=== PATIENT | male | born 1970 | race Caucasian/White ===

== ENCOUNTER → 2019-01-21 | Outpatient (CLI) | payer OTHER ==
--- NOTE | 2019-01-22 05:16 | CONS ---
CONSULTATION DATE OF SERVICE: 01/21/2019 This 48-year-old gentleman has been evaluated in sleep center for possible obstructive sleep apnea-hypopnea syndrome. HISTORY OF PRESENT ILLNESS/SLEEP-WAKE EVALUATION: Patient usual sleep schedule on working days from around 10 to 11 p.m. until 6:45 a.m. and on weekends from around 11 to 12 p.m. until 10 a.m. He does have problem with falling asleep, has TV set in bedroom, usually sleeps on the side position. According to his , he snores and has episodes of stopped breathing during the sleep. The patient wakes up from sleep about 4 times with about one episode of nocturia. In the morning he wakes up tired, has episodes of irritability, usually does not take naps. [place] Sleepiness Scale is 1. The patient described that he is always seeing dreams and he may start to see dreams right after closing his eyes while he is falling asleep. He also dreams if he is taking a nap during the day. PAST MEDICAL HISTORY: Positive for tinnitus, varicose vein of right leg. PAST SURGICAL HISTORY: Status post surgical treatment of the right leg for a varicose vein. MEDICATIONS: Lorazepam at bedtime basically to help patient to fall asleep. SOCIAL HISTORY: Negative for smoking. Alcohol consumption occasional. FAMILY HISTORY: Stroke, cancer, diabetes. REVIEW OF SYSTEMS: Multiple awakenings from sleep. Swelling of right leg. PHYSICAL EXAMINATION: During physical exam, gentleman without distress. VITAL SIGNS: BP 154/100 on the left arm and 140/85 on the right arm, HR 64, RR 16, height 6 feet 0 inch, weight 255, body mass index 34.5, temperature 97.9, oxygen saturation in room air 99%. HEENT: PERRLA, EOMI. Oropharynx extremely low position of soft palate Mallampati 4. Wide neck 17-1/4 inches in circumference. Possibly slight nasal septum deviation. NECK: Supple, no JVD. Thyroid is not palpable. LUNGS: Clear to percussion and to auscultation. Good air exchange. No wheezing or rhonchi. HEART: S1, S2 regular. No murmurs, gallops, or rubs. ABDOMEN: Soft and nontender. Bowel sounds are present. No organomegaly appreciated. EXTREMITIES: Up to 1+ ankle edema on the right leg. COMPLIANCE TESTER: Awake, alert, and oriented X3. Cranial nerves 2 to 7 intact. There is no fasciculation or atrophy. noted. No focal deficits observed. IMPRESSION: 1. Snoring, witnessed episodes of stopped breathing during sleep, extremely low position of soft palate, wide neck, obstructive sleep apnea-hypopnea syndrome. 2. Hypertension, today in the office. 3. History of tinnitus for 2 years. 4. Difficulties to initiate sleep secondary to tinnitus and possibly insomnia. 5. Status post right lower leg surgery for varicose vein. Mild swelling of the ankle of right leg. PLAN: 1. Polysomnography for evaluation of patient's breathing during sleep. 2. CPAP/BiPAP titration if sleep study confirms obstructive sleep apnea-hypopnea syndrome. 3. Preferable position during sleep on the side. 4. No driving if patient feels any sleepiness. 5. I will see patient for follow up visit to explain results of testing and following plan. Thank you very much for referring this patient for consultation. Sincerely, Bassem Mccallum MD, PhD, FAASM Diplomat of [place] [employer] [employer] [place] [employer] Tester [employer] [facility] [place] MMODL / IJN: [id number] /
== END | disposition home or self-care (01) ==
CPT/HCPCS: 99211

== ENCOUNTER → 2019-06-03 | Outpatient (CLI) | payer OTHER ==
--- NOTE | 2019-06-03 17:24 | PN ---
PROGRESS NOTE DATE OF SERVICE: 06/03/2019 This patient is a 48-year-old gentleman who has been followed in Sleep Center for treatment of obstructive sleep apnea-hypopnea syndrome. Recently the patient had a polysomnogram which showed mild sleep apnea with apnea-hypopnea index 5.5, but because the patient has other medical issues, including hypertension, treatment is indicated, and I ordered for him Auto PAP treatment. Today is his first visit after starting to use his CPAP equipment. With the equipment he feels that he sleeps better, and he feels better during the day. [place] Sleepiness Scale today is 4. Reading from his machine showed usage of equipment /30 days, and days for more than 4 hours, which is 70% of the time. Range of the pressure is from 5 to 15 with average pressure in the range of 7 to 10, with 95th percentile of the pressure 9 cm of water. Leak 95% percentile 11.2 L/minute, which is acceptable. Apnea-hypopnea index reading 1.0, which is perfect. MEDICATIONS: None. PHYSICAL EXAMINATION: GENERAL: A pleasant patient in no distress. VITAL SIGNS: BP 138/75, HR 78, RR 16, weight 253.2, temperature 97.3, oxygen saturation at room air 95%. HEENT: PERRLA, EOMI. Evaluation of oropharynx showed tongue protrudes midline. Low position of soft palate. Mallampati III. Large uvula. NECK: Supple. No JVD. Thyroid is not palpable. LUNGS: Clear to percussion and to auscultation. Good air exchange. No wheezing or rhonchi. HEART: S1, S2 regular. No murmurs, gallops or rubs. ABDOMEN: Soft and nontender. Bowel sounds are present. No organomegaly. EXTREMITIES: No clubbing or cyanosis. MANAGER OPERATIONS RESEARCH: Awake, alert, and oriented X3. Cranial nerves 2 to 7 intact. There is no fasciculation or atrophy. noted. No focal deficits observed. IMPRESSION: 1. Obstructive sleep apnea-hypopnea syndrome. The patient demonstrated great compliance with treatment, benefitting from treatment. 2. History of tinnitus. 3. Obesity; body mass index in the range 34. 4. History of anxiety. PLAN: 1. Patient will continue to use CPAP equipment every night for the whole night. 2. Losing weight. 3. Sleep hygiene with regular time in bed for at least 8 hours. 4. No driving if feeling any sleepiness. 5. I will maintain all necessary prescriptions for CPAP supplies, including mask, tube, filters. Thank you very much for allowing me to participate in the management of your patient. Sincerely, Bassem Mccallum MD, PhD, FAASM Diplomat of [place] [employer] [place] [employer] Special Procedure Tech of [facility] [place] MMODL / MAGNOLIAN: [id number] /
== END ==
LOC: SLEEP 15:30
PROVIDERS: ATTEND Internal Medicine
DX: G47.33 Obstructive sleep apnea (adult) (pediatric) (principal); E66.9 Obesity, unspecified; F41.9 Anxiety disorder, unspecified; H93.19 Tinnitus, unspecified ear; Z99.89 Dependence on other enabling machines and devices; Z68.34 Body mass index [BMI] 34.0-34.9, adult

== ENCOUNTER 2019-09-14 22:35 | Emergency (ER) | payer OTHER ==
[2019-09-14] MEDS ORDERED: SODIUM CHLORIDE 0.9% 1,000 ML IV STA (22:51)
[2019-09-14] MEDS ORDERED: KETOROLAC 30 MG/ML 1 ML VIAL IVP STA (22:51)
[2019-09-14 23:16] LABS: Basophils # (A) 0.1 k/uL (0-0.2); Basophils % (A) 1 %; Eosinophils # (A) 0.2 k/uL (0-0.7); Eosinophils % (A) 1 %; HCT 49.1 % (39.0-53.0); HGB 16.8 gm/dL (13.0-17.5); Lymphocytes # (A) 2.6 k/uL (1.0-4.8); Lymphocytes % (A) 17 %; MCH 30.6 pg (25.0-35.0); MCHC 34.1 g/dL (31.0-37.0); MCV 89.6 fL (80.0-100.0); Mean Platelet Volume 7.3; Monocytes % (A) 7 %; Neutrophils # (A) 11.3 k/uL (1.3-7.7); Neutrophils % (A) 73 %; Platelet Count 286 k/uL (150-450); RBC 5.48 m/uL (4.30-5.90); RDW 12.5 % (11.5-15.5); WBC 15.5 k/uL (3.8-10.6)
[2019-09-14 23:24] LABS: ALT 32 U/L (4-49); AST 26 U/L (17-59); African American GFR (CKD) >90 (>60 ml/min/1.73 sqM); Albumin 4.5 g/dL (3.5-5.0); Alkaline Phosphatase 77 U/L (38-126); Amylase 54 U/L (30-110); Anion Gap 10 mmol/L; Blood Urea Nitrogen 13 mg/dL (9-20); Calcium 9.5 mg/dL (8.4-10.2); Carbon Dioxide 25 mmol/L (22-30); Chloride 102 mmol/L (98-107); Glucose 144 mg/dL (74-99); Non-African American GFR(CKD) 89 (>60 ml/min/1.73 sqM); Potassium 4.1 mmol/L (3.5-5.1); Sodium 137 mmol/L (137-145); Total Protein 7.5 g/dL (6.3-8.2)
--- NOTE | 2019-09-14 23:52 | CT ---
EXAMINATION TYPE: CT abdomen pelvis w con DATE OF EXAM: 09/14/2019 COMPARISON: None HISTORY: lower abd pain CT DLP: 1567.80 mGycm Automated exposure control for dose reduction was used. CONTRAST: Performed with IV Contrast, patient injected with 100 mL of Isovue 300. Multiple axial sections were obtained from the diaphragm to the floor the pelvis with intravenous con trast Isovue 100 mL. Lung bases are clear. There is no pleural effusion. Heart is normal. Liver spleen pancreas gallbladde r appear normal. Stomach appears normal. Bile ducts are not dilated. There is no adrenal mass. Kidneys show satisfactory contrast opacification. There is no hydronephrosi s. Delayed images show normal renal excretion. Ureters are not dilated. There is no retroperitoneal a denopathy. Appendix is posterior and appears normal. Bladder distends smoothly. There is mild prostat ic calcification. There is right side scrotal hernia that contains fat. There is fat stranding around the mid sigmoid colon. There is wall thickening. There are a few sigmoi d diverticula. There is no evidence of free air. There is no ascites. There is no evidence of bowel obstruction. Lum bar vertebra have normal spacing and alignment. Posterior elements are intact. Bony pelvis appears in tact. IMPRESSION: Inflammatory changes in the pelvis related to mild to moderate diverticulitis of the mid sigmoid colo n. No abscess.
[2019-09-15 00:06] LABS: Appearance,Urine Clear (Clear); Bilirubin,Urine Negative (Negative); Blood,Urine Small (Negative); Color,Urine Yellow; Glucose,Urine (UA) Negative (Negative); Ketones,Urine Negative (Negative); Leukocyte Esterase,Urine Negative (Negative); Mucus,Urine Few /hpf; Nitrite,Urine Negative (Negative); Protein,Urine 1+ (Negative); RBC,Urine 4 /hpf (0-5); Squamous Epithelial Cell,Urine 1 /hpf (0-4); Urobilinogen,Urine <2.0 mg/dL (<2.0); WBC,Urine 1 /hpf (0-5)
[2019-09-15] MEDS ORDERED: ACET/COD 300 MG/30 MG STARTER PACK 6 TAB BTL PO STA (00:09)
[2019-09-15] MEDS ORDERED: AMOXIC-POT CLAV 875MG STARTER PACK 2 TAB BTL PO STA (00:09)
--- NOTE | 2019-09-15 00:10 | ED ---
Abdominal Pain HPI - General Chief Complaint: Abdominal Pain Stated Complaint: Abd Pain Time Seen by Provider: 09/14/19 22:40 Source: patient Mode of arrival: ambulatory Limitations: no limitations - History of Present Illness Initial Comments: 48 year-old male patient presents to the emergency department today for evaluation of lower abdominal pain. Patient states he's had the pain since early this morning. States the pain is been worsening throughout the day. Patient states that he has been having small bowel movements and is concerned he may be constipated. Patient denies any hematochezia or melena. Denies fever or chills. Denies any nausea or vomiting. Patient denies ever having pain similar to this in the past. Patient states that he did have a colonoscopy 7 years ago and was told that he had a seed ALLERGY. Patient denies taking any medications or chronic medical conditions. Patient denies any recent rash, shortness breath, chest pain, back pain, numbness, tingling, dizziness, weakness, hematuria, dysuria, urinary urgency, urinary frequency, headache, visual changes, or any other complaints. - Related Data Home Medications Medication Instructions Recorded Confirmed Aspirin 81 mg PO DAILY 03/30/15 03/31/15 Fish Oil/Dha/Epa [Fish Oil 1,200 1 tab PO DAILY 03/30/15 03/31/15 mg Fish Oil] Multivitamin [Men's Multi-Vitamin] 1 each PO DAILY 03/30/15 03/31/15 LORazepam [Ativan] 1 mg PO TID 03/31/15 03/31/15 Previous Rx's Medication Instructions Recorded Amoxic-Pot Clav 875-125Mg 1 tab PO Q12HR #20 tablet 09/15/19 [Augmentin 875-125] Allergies Allergy/AdvReac Type Severity Reaction Status Date / Time No Known Allergies Allergy Verified 09/14/19 22:36 Review of Systems ROS Statement: Those systems with pertinent positive or pertinent negative responses have been documented in the HPI. ROS Other: All systems not noted in ROS Statement are negative. Past Medical History Past Medical History: No Reported History History of Any Multi-Drug Resistant Organisms: None Reported Additional Past Surgical History / Comment(s): Colonoscopy 7 yrs. ago Past Anesthesia/Blood Transfusion Reactions: No Reported Reaction Past Psychological History: No Psychological Hx Reported Smoking Status: Never smoker Past Alcohol Use History: Occasional Past Drug Use History: None Reported - Past Family History Mother Family Medical History: Cancer Additional Family Medical History / Comment(s): Colon General Exam Limitations: no limitations General appearance: alert, in no apparent distress, other (This is a well- developed, well-nourished adult male patient in no acute distress. Vital signs upon presentation are temperature 98.3F, pulse 90, respirations 16, blood pressure 177/99, pulse ox 99% on room air.) Respiratory exam: Present: normal lung sounds bilaterally. Absent: respiratory distress, wheezes, rales, rhonchi, stridor Cardiovascular Exam: Present: regular rate, normal rhythm, normal heart sounds. Absent: systolic murmur, diastolic murmur, rubs, gallop, clicks GI/Abdominal exam: Present: soft, tenderness (Lower abdominal tenderness), normal bowel sounds. Absent: distended, guarding, rebound, rigid Neurological exam: Present: alert, oriented X3, CN II-XII intact Psychiatric exam: Present: normal affect, normal mood Skin exam: Present: warm, dry, intact, normal color. Absent: rash Course Vital Signs 09/14/19 09/15/19 22:37 00:32 Temperature 98.3 F 97.8 F Pulse Rate 90 88 Respiratory 16 18 Rate Blood Pressure 177/99 166/82 O2 Sat by Pulse 99 98 Oximetry Medical Decision Making - Medical Decision Making 48-year-old male patient presents to the emergency department today for evaluati on of lower abdominal pain. Physical examination did reveal tenderness over the lower abdomen. Labs reviewed and did reveal elevated white blood cell count at 15.5. CT abdomen and pelvis was obtained and did show evidence for sigmoid diverticulitis. I did discuss findings and results with the patient. We did discuss inpatient versus outpatient management. Patient requests to be treated outpatient initially. We did give a prescription for Augmentin and gave initial doses here. He'll be given a starter pack for pain medication. He is instructed to follow-up with his primary care physician for recheck in 1-2 days. Return parameters were discussed in detail. He verbalizes understanding and agrees with this plan. - Lab Data Result diagrams: 09/14/19 23:05 09/14/19 23:05 Lab Results 09/14/19 09/14/19 09/14/19 Range/Units 23:05 23:05 23:05 WBC 15.5 H (3.8-10.6) k/uL RBC 5.48 (4.30-5.90) m/uL Hgb 16.8 (13.0-17.5) gm/dL Hct 49.1 (39.0-53.0) % MCV 89.6 (80.0-100.0) fL MCH 30.6 (25.0-35.0) pg MCHC 34.1 (31.0-37.0) g/dL RDW 12.5 (11.5-15.5) % Plt Count 286 (150-450) k/uL Neutrophils % 73 % Lymphocytes % 17 % Monocytes % 7 % Eosinophils % 1 % Basophils % 1 % Neutrophils # 11.3 H (1.3-7.7) k/uL Lymphocytes # 2.6 (1.0-4.8) k/uL Monocytes # 1.0 (0-1.0) k/uL Eosinophils # 0.2 (0-0.7) k/uL Basophils # 0.1 (0-0.2) k/uL Sodium 137 (137-145) mmol/L Potassium 4.1 (3.5-5.1) mmol/L Chloride 102 (98-107) mmol/L Carbon Dioxide 25 (22-30) mmol/L Anion Gap 10 mmol/L BUN 13 (9-20) mg/dL Creatinine 1.01 (0.66-1.25) mg/dL Est GFR (CKD-EPI)AfAm >90 (>60 ml/min/1.73 sqM) Est GFR (CKD-EPI)NonAf 89 (>60 ml/min/1.73 sqM) Glucose 144 H (74-99) mg/dL Plasma Lactic Acid Faustino 1.6 (0.7-2.0) mmol/L Calcium 9.5 (8.4-10.2) mg/dL Total Bilirubin 1.0 (0.2-1.3) mg/dL AST 26 (17-59) U/L ALT 32 (4-49) U/L Alkaline Phosphatase 77 (38-126) U/L Total Protein 7.5 (6.3-8.2) g/dL Albumin 4.5 (3.5-5.0) g/dL Amylase 54 (30-110) U/L Lipase 62 (23-300) U/L Urine Color Urine Appearance (Clear) Urine pH (5.0-8.0) Ur Specific [place] (1.001-1.035) Urine Protein (Negative) Urine Glucose (UA) (Negative) Urine Ketones (Negative) Urine Blood (Negative) Urine Nitrite (Negative) Urine Bilirubin (Negative) Urine Urobilinogen (<2.0) mg/dL Ur Leukocyte Esterase (Negative) Urine RBC (0-5) /hpf Urine WBC (0-5) /hpf Ur Squamous Epith Cells (0-4) /hpf Urine Mucus (None) /hpf 09/14/19 Range/Units 23:57 WBC (3.8-10.6) k/uL RBC (4.30-5.90) m/uL Hgb (13.0-17.5) gm/dL Hct (39.0-53.0) % MCV (80.0-100.0) fL MCH (25.0-35.0) pg MCHC (31.0-37.0) g/dL RDW (11.5-15.5) % Plt Count (150-450) k/uL Neutrophils % % Lymphocytes % % Monocytes % % Eosinophils % % Basophils % % Neutrophils # (1.3-7.7) k/uL Lymphocytes # (1.0-4.8) k/uL Monocytes # (0-1.0) k/uL Eosinophils # (0-0.7) k/uL Basophils # (0-0.2) k/uL Sodium (137-145) mmol/L Potassium (3.5-5.1) mmol/L Chloride (98-107) mmol/L Carbon Dioxide (22-30) mmol/L Anion Gap mmol/L BUN (9-20) mg/dL Creatinine (0.66-1.25) mg/dL Est GFR (CKD-EPI)AfAm (>60 ml/min/1.73 sqM) Est GFR (CKD-EPI)NonAf (>60 ml/min/1.73 sqM) Glucose (74-99) mg/dL Plasma Lactic Acid Faustino (0.7-2.0) mmol/L Calcium (8.4-10.2) mg/dL Total Bilirubin (0.2-1.3) mg/dL AST (17-59) U/L ALT (4-49) U/L Alkaline Phosphatase (38-126) U/L Total Protein (6.3-8.2) g/dL Albumin (3.5-5.0) g/dL Amylase (30-110) U/L Lipase (23-300) U/L Urine Color Yellow Urine Appearance Clear (Clear) Urine pH 6.0 (5.0-8.0) Ur Specific [place] >1.050 H (1.001-1.035) Urine Protein 1+ H (Negative) Urine Glucose (UA) Negative (Negative) Urine Ketones Negative (Negative) Urine Blood Small H (Negative) Urine Nitrite Negative (Negative) Urine Bilirubin Negative (Negative) Urine Urobilinogen <2.0 (<2.0) mg/dL Ur Leukocyte Esterase Negative (Negative) Urine RBC 4 (0-5) /hpf Urine WBC 1 (0-5) /hpf Ur Squamous Epith Cells 1 (0-4) /hpf Urine Mucus Few H (None) /hpf - Radiology Data Radiology results: report reviewed, image reviewed CT abdomen and pelvis with contrast was obtained. Report was reviewed in its entirety. Impression by Dr. Sharma shows inflammatory changes in the pelvis related to mild to moderate diverticulitis of the mid sigmoid colon. No abscess. Disposition Clinical Impression: Diverticulitis Disposition: HOME SELF-CARE Condition: Good Instructions (If sedation given, give patient instructions): Diverticulitis (ED), Diverticulitis Diet (ED) Additional Instructions: Complete antibiotic prescription in full. Eat soft, bland diet until pain subsides. Return to the emergency department immediately if you develop fever, vomiting, or worsening pain. Follow up with your primary care physician for recheck in 1-2 days. Return for any other new, worsening, or concerning symptoms. Prescriptions: Amoxic-Pot Clav 875-125Mg [Augmentin 875-125] 1 tab PO Q12HR #20 tablet Is patient prescribed a controlled substance at d/c from ED?: No Referrals: Modesto Marcano DO [Primary Care Provider] - 1-2 days Time of Disposition: 00:10
[2019-09-15 00:34] VITALS: BP 166/82; PULSE 88; RESP 18; TEMP 97.8
[2019-09-15 00:34] LABS: Specific Gravity,Urine >1.050 (1.001-1.035)
== END 2019-09-15 00:32 | disposition home or self-care (01) ==
LOC: EC 22:35
DX: K57.32 Diverticulitis of large intestine without perforation or abscess without bleeding (principal); D72.829 Elevated white blood cell count, unspecified; Z91.048 Other nonmedicinal substance allergy status; Z80.0 Family history of malignant neoplasm of digestive organs
CPT/HCPCS: 36415; 80053; 82150; 83605; 83690; 85025; 81001; 74177; 99284; 96374; 96361; J1885; Q9967

== ENCOUNTER 2023-08-18 07:45 | Day surgery (SDC) | payer OTHER ==
[2023-08-18 08:20] VITALS: TEMP 97.4
[2023-08-18] MEDS: LACTATED RINGERS 1,000 ML IV SCH (08:21)
[2023-08-18] MEDS ORDERED: LIDOCAINE 1% INJ 10MG/ML (20 ML MDV) ONE (08:44)
[2023-08-18] MEDS ORDERED: PROPOFOL 10 MG/ML 20 ML VIAL IV ONE (08:44)
--- NOTE | 2023-08-18 08:50 | P.GSHP ---
History of Present Illness H&P Date: 08/18/23 Chief Complaint: Screening colonoscopy -year-old male presents today for screening colonoscopy. Patient denies any significant GI complaints. Past Medical History Past Medical History: No Reported History Additional Past Medical History / Comment(s): Routine colonoscopy/mother had colon cancer, tested negative for GAGANDEEP but uses Cpap d/t snoring. History of Any Multi-Drug Resistant Organisms: None Reported Additional Past Surgical History / Comment(s): Colonoscopies, varicose vein surgery. Past Anesthesia/Blood Transfusion Reactions: Postoperative Nausea & Vomiting (PONV) Smoking Status: Never smoker - Past Family History Mother Family Medical History: Cancer Additional Family Medical History / Comment(s): Colon Medications and Allergies Home Medications Medication Instructions Recorded Confirmed Type No Known Home Medications 08/14/23 08/18/23 History Allergies Allergy/AdvReac Type Severity Reaction Status Date / Time No Known Allergies Allergy Verified 08/18/23 08:09 Surgical - Exam Vital Signs Temp Pulse Resp BP Pulse Ox 97.4 F L 74 20 150/85 97 08/18/23 08:11 08/18/23 08:11 08/18/23 08:11 08/18/23 08:11 08/18/23 08:11 - General well developed, well nourished, no distress - Eyes PERRL - ENT normal pinna - Neck no masses - Respiratory normal expansion - Cardiovascular Rhythm: regular - Abdomen Abdomen: soft, non tender Assessment and Plan Assessment: Perform screening colonoscopy
--- NOTE | 2023-08-18 09:01 | P.OP ---
Date of Procedure: 08/18/23 Preoperative Diagnosis: screening colonoscopy Postoperative Diagnosis: Diverticulosis Procedure(s) Performed: Colonoscopy Anesthesia: MAC Surgeon: Martell Hines Pathology: none sent Condition: stable Disposition: PACU Description of Procedure: The patient was placed on the endoscopy table in the lateral position. He received IV sedation. Digital rectal exam was performed. This revealed no abnormalities. The flexible colonoscope was then placed the patient anus and passed throughout the entire colon. The ileocecal valve was visualized. The cecum, ascending and transverse colon appeared normal. The descending and sigmoid colon had mild diverticular changes. Scope was then brought back the rectum and this appeared normal. Scope was withdrawn for the patient.
[2023-08-18 09:19] VITALS: RESP 16
[2023-08-18 09:48] VITALS: BP 131/85; PULSE 62
== END 2023-08-18 09:45 | disposition home or self-care (01) ==
LOC: ORWHC2ENDO 07:45
PROVIDERS: ATTEND Surgery
DX: Z12.11 Encounter for screening for malignant neoplasm of colon (principal); K57.30 Diverticulosis of large intestine without perforation or abscess without bleeding; G47.33 Obstructive sleep apnea (adult) (pediatric)
CPT/HCPCS: 45378; J2001; J2704